=== PATIENT | female | born 2000 | race Caucasian/White ===

== ENCOUNTER → 2020-04-15 18:28 | Outpatient (CLI) | payer SELFPAY ==
[2020-04-11 11:52] VITALS: BMI 19.4
== END ==
PROVIDERS: Referring Provider Physician Assistant Surgical; Visit Provider Physician Assistant Surgical
DX: J02.9 Acute pharyngitis, unspecified (principal)
CPT/HCPCS: 87635; 94799; U0003

== ENCOUNTER → 2020-04-18 08:11 | Outpatient (CLI) | payer OTHER, SELFPAY ==
[2020-04-18 08:04] VITALS: BMI 20.9
--- NOTE | 2020-04-18 08:11 | RAD_ITS ---
STUDY: X-RAY - LUMBAR SPINE REASON FOR EXAM: Female, 19 years old. RIGHT HIP AND LBP TECHNIQUE: 4 view(s) of the lumbar spine were obtained, including extension and flexion images. COMPARISON: None FINDINGS: Normal lumbar lordosis. There is no substantial scoliosis. There is a normal alignment of the vertebrae. Normal vertebral bodies and endplates. Normal disc space heights. The soft tissue structures are unremarkable. RAD/L/S Spine Comp/w Bending Views IMPRESSION: Within normal limits x-ray examination of the lumbar spine. Electronically Signed: Mahsa Hardin MD at 20:56 EDT Tel , Service support ,
--- NOTE | 2020-04-18 08:11 | RAD_ITS ---
STUDY: X-RAY - PELVIS AND RIGHT HIP REASON FOR EXAM: Female, 19 years old. RIGHT HIP PAIN TECHNIQUE: 4 views of the pelvis and hip. COMPARISON: None. FINDINGS: There is a non-specific bowel gas pattern. Normal visualized soft tissue structures. Normal bilateral iliac wings, sacroiliac joints and visualized sacrum. Normal bilateral superior and inferior pubic rami. Normal pubic symphysis. Normal bilateral ischial tuberosities. Normal visualized femoral head. Normal acetabulum. Normal hip joint. RAD/HIP, UNI W/ Pelvis 2-3 Views IMPRESSION: Normal x-ray examination of the pelvis and hip. Electronically Signed: Georgie Mcdowell, at 14:44 EDT Tel , Service support ,
== END ==
PROVIDERS: Visit Provider Physician Assistant
DX: M25.551 Pain in right hip (principal); M54.5 Low back pain
CPT/HCPCS: 72114; 73502

== ENCOUNTER → 2020-04-18 08:13 | Outpatient (CLI) | payer OTHER, SELFPAY ==
[2020-04-18 08:04] VITALS: BMI 20.9
== END ==
PROVIDERS: Referring Provider Physician Assistant; Visit Provider Physician Assistant
DX: Z00.00 Encounter for general adult medical examination without abnormal findings (principal)

== ENCOUNTER 2023-04-13 20:06 | Emergency (ER) | payer BC, SELFPAY ==
[2023-04-13 20:08] VITALS: BP 119/84; PULSE 101; RESP 15; TEMP 37; O2SAT 98; BMI 20.9
[2023-04-13 20:45] LABS: Absolute Lymphocyte Count 2.67 X10^3/uL (0.83-4.51); Absolute Neutrophil Count 5.5 X10^3/uL (2.0-7.7); Basophil# 0.07 X10^3/uL; Basophil% 0.8 % (0-1); Eosinophil# 0.01 X10^3/uL; Eosinophils% 0.1 % (0-5); Hematocrit 41.7 % (37-47); Hemoglobin 13.7 g/dL (12.0-15.0); Lymphocyte # 2.67 X10^3/ul (0.83-4.51); Lymphocyte % 29.6 % (19-41); Mean Corp Hgb Conc 32.9 g/dL (32-36); Mean Corpuscular Hgb 26.8 pg (27.0-32.0); Mean Corpuscular Volume 81.4 fL (81-99); Mean Platelet Vol. 9.8 fl (6.2-12.0); Monocyte# 0.72 X10^3/uL; NRBC Flagged by Analyzer 0 % (0-5); Neutrophil # 5.52 X10^3/uL (2.7-7.7); Neutrophil % 61.3 % (47-70); Platelet Count 276 K/mm3 (150-450); RBC Distribution Width CV 12.6 % (11.6-14.6); RBC Distribution Width SD 37.4 fl (35.1-43.9); Red Blood Count 5.12 M/mm3 (4.2-5.4)
[2023-04-13 21:29] LABS: Alcohol, Blood (Medical)-Serum < 3.0 mg/dL
[2023-04-13 21:31] LABS: Anion Gap 7 (5-15); BUN 14 mg/dL (7-18); BUN/Creat Ratio 17.9 RATIO (10-20); Calcium,Total 9.2 mg/dL (8.5-10.1); Chloride 105 mmol/L (98-107); Creatinine, Serum 0.78 mg/dL (0.55-1.02); EST Glomerular Filtration Rate 97 mL/min (>60); Est Glom Filt Rate - Afr Amer 117 mL/min (>60); Estimated Creatinine Clearance 108.55 ml/min; Glucose 96 mg/dL (74-106); Potassium 4.1 mmol/L (3.5-5.1); Sodium Level 139 mmol/L (136-145)
[2023-04-13 21:57] LABS: Internal QC Validated? YES +Cl - CLEAR BKGD; Pregnancy, Serum, hCG Quali. NEGATIVE Negative
[2023-04-13 22:25] LABS: Amphetamine Urine VISTA NEGATIVE (<1000 ng/mL); Barbiturate Urine VISTA NEGATIVE (< 200 ng/mL); Benzodiazepine Urine VISTA NEGATIVE (< 200 ng/mL); Cocaine Urine VISTA NEGATIVE (< 300 ng/mL); Ecstacy Urine VISTA NEGATIVE (< 500 ng/mL); Methadone Urine VISTA NEGATIVE (< 300 ng/mL); PCP Urine VISTA NEGATIVE (< 25 ng/mL); THC Urine VISTA NEGATIVE (< 50 ng/mL); Vista UDS pH Range 5
--- NOTE | 2023-04-13 22:42 | EDS_ITS ---
HPI HPI - Psych History of Present Illness Chief Complaint: Suicidal Informant: patient Narrative Narrative: Patient lives with her significant other, she states she has a longstanding history of depression and has a job that does not make a lot of money, she and her significant other are struggling financially, she states it came to ahead today and she spiraled, having thoughts of harming herself. Police pink slipped her here. She is insightful and regrets spiraling, states this is happened before. She sees a psychiatrist. She is on medications that she is compliant with and has had none of them changed lately, and denies using any substances or having any recent illness or injury. [facility] Medical History Asthma Depression Home Medications albuterol sulfate 90 mcg/actuation aerosol inhaler (Ventolin HFA) 1 puff inhalation Q6H 05/09/19 [History Last Taken Unknown] levonorgestrel-ethinyl estradiol 0.1 mg-20 mcg tablet (Sronyx) 1 tab PO DAILY 05/09/19 [History Last Taken Unknown] escitalopram oxalate 5 mg tablet (Lexapro) 5 mg PO DAILY 07/28/21 [History Last Taken Unknown] mirtazapine 15 mg tablet (Remeron) mg PO 04/13/23 [History Last Taken Unknown] Allergy/AdvReac Type Severity Reaction Status Date / Time No Known Allergies Allergy Verified 04/13/23 20:13 Social History Smoking Status: Never smoker alcohol intake: never ROS ROS ED Constitutional Constitutional ED: Denies chills or fever(s) Eyes Eyes: Denies change in vision or diplopia ENT ENT ED: Denies rhinorrhea or sore throat Cardiovascular Cardiovascular: Denies chest pain or palpitations Respiratory/Chest Respiratory/Chest: Denies cough or dyspnea Gastrointestinal Gastrointestinal: Denies abdominal pain, diarrhea, nausea or vomiting Genitourinary Genitourinary ED: Denies dysuria or hematuria Musculoskeletal Musculoskeletal: Denies back pain or neck pain Integumentary Denies abscess or rash Neurologic Neurologic: Denies headache(s), paresthesias or weakness Psychiatric Psychiatric: Reports depression and suicidal thoughts; Denies homicidal ideation or suicidal ideation EXAM Physical Exam Const Vital Signs: 04/13/23 20:08 Temperature 98.6 F Temperature Source Temporal Pulse Rate 101 H Respiratory Rate 15 Blood Pressure 119/84 H Blood Pressure Mean 95 Pulse Ox 98 Oxygen Delivery Method Room Air Positive well nourished and well developed General Appearance ED: well developed and NAD HEENT Reports moist mucous membranes normocephalic and atraumatic Eyes PERRL and EOMs intact bilaterally General Eye ED: Negative for scleral icterus Neck no lymphadenopathy and supple Resp normal respiratory effort and clear to auscultation bilaterally Cardio no murmurs Rate: regular rate Rhythm: regular rhythm GI non-tender and non-distended Auscultation: normoactive bowel sounds Palpation: soft Back/Spine no CVA tenderness and normal ROM Extremity normal to inspection General Extremety ED: Negative for edema General Extremity: Negative for edema Neuro oriented x3, CN's II-XII intact bilaterally, no sensory deficits noted and gait normal Sensorium / Orientation: alert Motor Exam: strength 5/5 throughout Psych mental status grossly normal, thought process normal, cooperative, affect normal, speech normal, activity/motor behavior normal, denies hallucinations and denies homicidal ideation Mood & Affect: depressed Thought Content: normal thought content Insight: insight good Judgement: judgement good Skin Lesions: no lesions Rashes: no rashes MDM MDM MDM Narrative Medical decision making narrative: Labs, alcohol, urine toxicology obtained and all within normal limits. She is medically cleared, I had social work evaluate her. She agrees she is low risk for self-harm, the mother is here, the patient significant other is here, they are all in the same page and okay with her going home and agree that this is happened before and I do think she is insightful enough to contract for safety here, which she is agreeable to do and follow-up with her psychiatrist. Discharged home with family. History & Record Review Discussion w/independent historian: Patient, Family and Significant other Lab Data Attestation: I reviewed the patient's lab results. Labs: Laboratory Results - last 24 hr 04/13/23 04/13/23 20:28 21:15 WBC 9.0 RBC 5.12 Hgb 13.7 Hct 41.7 MCV 81.4 MCH 26.8 L MCHC 32.9 RDW Std Deviation 37.4 RDW Coeff of Landon 12.6 Plt Count 276 MPV 9.8 Immature Gran % (Auto) 0.200 Neut % (Auto) 61.3 Lymph % (Auto) 29.6 [place] % (Auto) 8.0 Eos % (Auto) 0.1 Baso % (Auto) 0.8 Absolute Neuts (auto) 5.5 Absolute Lymphs (auto) 2.67 Nucleated RBC % 0 Sodium 139 Potassium 4.1 Chloride 105 Carbon Dioxide 27.0 Anion Gap 7 BUN 14 Creatinine 0.78 Estim Creat Clear Calc 108.55 Est GFR (MDRD) Af Amer 117 Est GFR (MDRD) Non-Af 97 BUN/Creatinine Ratio 17.9 Glucose 96 Calcium 9.2 Serum , Qual NEGATIVE Urine Opiates Screen NEGATIVE Urine Methadone Screen NEGATIVE Ur Barbiturates Screen NEGATIVE Ur Phencyclidine Scrn NEGATIVE Ur Amphetamines Screen NEGATIVE MDMA (Ecstasy) Screen NEGATIVE U Benzodiazepines Scrn NEGATIVE Urine Cocaine Screen NEGATIVE U Cannabinoids Screen NEGATIVE Ur Drug Screen Comment Ethyl Alcohol < 3.0 Management Discussion w/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 healthcare provider: 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 Discharge Plan Triage Chief Complaint: Suicidal ED Provider: Dionicio Raymundo Dx/Rx/DC Orders Clinical Impression: Suicidal thoughts, Reaction, situational, acute, to stress Instructions: ED Anxiety Reaction, CONTRACT, No Harm Prescriptions: No Action levonorgestrel-ethinyl estrad [Sronyx] 0.1-20 mg-mcg tablet 1 tab PO DAILY albuterol sulfate [Ventolin HFA] 90 mcg/actuation HFA aerosol inhaler 1 puff INHALATION Q6H escitalopram oxalate [Lexapro] 5 mg tablet 5 mg PO DAILY mirtazapine [Remeron] 15 mg tablet PO Primary Care Provider: Kelly Riley Referrals: Counseling,Center [Group of Physicians] - (as directed, or with your psychiatrist) Kelly Riley, [Primary Care Provider] - Disposition Disposition: Home, Self Care Discharge Date/Time: 04/13/23 23:20
--- NOTE | 2023-04-13 22:46 | CM.ED ---
Social Work Psychiatric Assessment Reason for Consult: MH Informants: Patient, Kalina Chief Complaint: Patient reports ?I was feeling really depressed and called crisis but I hung up because she wasn?t supportive and I think she called the packaging design engineer?. ?? Demographics: Patient is a 22-year-old who identifies as heterosexual female. Patient is not and living with her boyfriend and their two dogs. 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 ? Mental Health Treatment/ History: Patient reports working with Dr. Castro for psychiatry, explaining she has phone sessions twice a year with no changes to her medications. Patient has been prescribed Lexapro for the past three years. Patient reports one previous psychiatric hospitalization three years ago due to SI. Patient was briefly engaged in counseling services but had to stop due to scheduling issues. Patient states known diagnosis are anxiety, depression, OCD and possible personality disorder. ? Supports/ Resources: Patient reports many family, friends as well as coworkers as support. Triggers/ stressors: Patient reports main stressor has been financial. ? Legal Issues: none reported ?? Coping Skills: Patient explained she enjoys reading, sleeping, spending time with her dogs and being home. ?? Abuse History: ? Patient denies. Substance Abuse Hx: patient denies ??? Risk to Self/Others: ? Suicidal: Patient reports recent thoughts of hopelessness, explaining she has thoughts about not wanting to deal with life but explained she hasn?t had many true suicidal thoughts. Patient reports low intent currently with a vague plan. Patient explained when she went to [facility] three years ago she had full intent to commit suicide, whereas today she feels hopeless and overwhelmed. ? Homicidal: Patient denied ? Violence: Patient denied. ? Mental Status Exam: ? Orientation x4 ? Memory: good ? Appearance:? appropriate ? Mood/ affect: Patient is tearful at times, depressed mood. ? Communication Pattern: Patient responds to questions. ? Thought Process: Patient denies A/V Hallucinations ? General Intellectual Functioning: average Judgement: fair Insight: fair? Assessment: JIMENEZ met with MD Raymundo, prior to assessment and reviewed symptoms and current concerns. MD recommending safety plan and resources. 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 Patient was agreeable to speak to social work with family outside of the room. Before patient?s family left, patient?s mother reports her main concern is the patient doesn?t see her psychiatrist enough and needs to start counseling services. SW then utilized open and close ended questions to gather information for patient?s assessment. Patient was receptive and cooperative, and reports packaging design engineer encouraged her to come in for an evaluation after she hung up on crisis. Patient states she has been struggling with thoughts of hopelessness and feeling easily overwhelmed. Patient discussed struggling with her anxious thoughts and feels she would benefit from resuming counseling services. Patient reports low intent with a vague plan. Patient is currently future oriented, has a large support system, reports loving her job as well as her new home with her boyfriend. SW reviewed recommendation for safety plan and resources, patient agreeable. SW met with patient and patient?s family and reviewed recommendation for safety plan and resources; patient agreeable to complete with family present. SW assisted patient and patient?s family with completing a safety plan as well as reviewing ways to decrease lethal means. SW also provided coping skills information and community MH agency information. Patient and family agreeable to plan and voice no other needs. JIMENEZ informed patient SW would follow up tomorrow, but if symptoms increase or worsen patient should contact Crisis to present to ED, patient voiced understanding. Care team updated of plan. Plan: safety plan home, MH resources provided Rachael ATKINS, [place]
--- NOTE | 2023-04-15 17:35 | CM.ED ---
Social Work SW attempted to contact patient at the phone number listed twice to follow up regarding safety plan completed 04/14/23. Patient phone went directly to , SW unable to leave as it is full. Rachael ATKINS, [place]
== END 2023-04-13 23:20 | disposition home or self-care (01) ==
PROVIDERS: Emergency Provider Emergency Medicine; Visit Provider Emergency Medicine
DX: R45.851 Suicidal ideations (principal); F43.0 Acute stress reaction; Z79.899 Other long term (current) drug therapy
CPT/HCPCS: 80048; 80307; 82077; 84703; 85025; 87811; 99283